=== PATIENT | male | born 1990 | race Caucasian/White ===

== ENCOUNTER 2016-10-12 20:19 | Inpatient (IN) | payer OTHER ==
[~2016-10-12 20:19] MED LIST: DEMEROL 50 MG IJ ONE; VERSED 5 MG/5 ML IV ONE
[2016-10-12] MEDS ORDERED: Adacel Vial IM ONE ×2 (20:52→21:04)
[2016-10-12] MEDS ORDERED: Marcaine 0.5%/Epinephrine 10 ML IJ ONE (20:53)
[2016-10-12 21:02] LABS: BASOPHIL % 0.1 % (0.0-0.4); Eosinophil % 0.2 % (0.00-5.0); Granulocytes % 81.1 % (36.0-66.0); Lymphocytes % 8.9 % (24.0-44.0); Mean Cell Volume 88.9 fl (78-100); Mean Corpuscular Hemoglobin 30.4 pg (26-32); Mean Platelet Volume 9.6 fl (6-9.5); Monocytes % 9.7 % (0.0-12.0); Platelet Count 193 K/mm3 (150-450); Red Blood Count 4.61 M/mm3 (4.1-5.6); Red Cell Distribution Width 12.9 % (11.5-14.0); White Blood Count 12.2 K/mm3 (4.0-10.5)
[2016-10-12] MEDS: Sodium Chloride 0.9% 1000 ML 1,000 ML IV SCH (21:10)
--- NOTE | 2016-10-12 21:22 | ERPHSYRPT ---
- History of Present Illness Source: patient, other (fiance) Exam Limitations: no limitations Patient Subjective Stated Complaint: "I had about a 100 temp a hour ago. I noticed this spot on my right arm ealier and tried to drain it with a sterile razor blade. It was a lot bigger then it is now." Triage Nursing Assessment: aox3, breathing easy unlabored, skin pink warm dry with abscess noted ti right forearm, steady gait Physician History: "Patient with swelling in area of abscess of the right mid dorsal forearm over past 4 days which has been increasing in redness swelling down into the wrist area up into the elbow area and he lanced it himself with razor blade earlier today with purulent drainage. Possible foreign body as he was grinding steel' 4 days ago also. Otherwise he thinks maybe it could be an insect bite. No history of MRSA in the past denies substance abuse. Did take some Motrin prior to ER admission. Occurred: days ago (4) Method of Injury: other (as above) Quality: aching Severity of Pain-Max: moderate Severity of Pain-Current: mild Extremities Pain Location: forearm: right, wrist: right Modifying Factors: Improves With: immobilization, movement Associated Symptoms: chills, fever Allergies/Adverse Reactions: cefixime [From Suprax] Allergy (Verified 10/12/16 20:32) Home Medications: No Reportable Medications [No Reported Medications] 10/12/16 [History] Hx Tetanus, Diphtheria Vaccination/Date Given: Yes (2011) - Review of Systems Constitutional: Fever, Chills, Malaise Eyes: No Symptoms Ears, Nose, & Throat: No Symptoms Respiratory: No Cough, No Dyspnea Cardiac: No Chest Pain, No Edema, No Syncope Abdominal/Gastrointestinal: No Abdominal Pain, No Nausea, No Vomiting, No Diarrhea Genitourinary Symptoms: No Dysuria Musculoskeletal: Other (aas noted) Skin: Cellulitis, Other (abscess) Neurological: No Symptoms Psychological: No Symptoms Endocrine: No Symptoms Hematologic/Lymphatic: No Symptoms Immunological/Allergic: No Symptoms - Past Medical History Pertinent Past Medical History: No - Past Surgical History Past Surgical History: Yes Other Surgical History: right ankle, tonsils, left thumb, right hand - Social History Smoking Status: Former smoker Drug Use: none - Nursing Vital Signs Nursing Vital Signs: Initial Vital Signs Temperature 98.3 F 10/12/16 20:25 Pulse Rate 97 H 10/12/16 20:25 Respiratory Rate 14 10/12/16 20:25 Blood Pressure 155/88 10/12/16 20:25 O2 Sat by Pulse Oximetry 98 10/12/16 20:25 Pain Scale Pain Intensity 2 - Physical Exam General Appearance: mild distress Eyes, Ears, Nose, Throat Exam: normal ENT inspection Neck Exam: normal inspection Cardiovascular/Respiratory Exam: normal breath sounds, regular rate/rhythm, heart sounds normal Abdominal Exam: non-tender, soft Back Exam: normal inspection Shoulder Exam: normal inspection Elbow/Forearm Exam: limited ROM, pain, soft tissue tenderness, swelling ( findings of erythema/ induration) Wrist Exam: soft tissue tenderness (Erythema cocess however this is central 8x5 cm area of severe induration with 2 x 2 centimeter area of ab), swelling Hand Exam: normal inspection Neuro/Tendon Exam: normal sensation, normal motor functions (but tender/painful) , no evidence tendon injury Mental Status Exam: alert, oriented x 3, cooperative Skin Exam: other (as noted above) SpO2 Interpretation: normal SpO2: 100 Oxygen Delivery: Room Air - Radiology Exams Forearm X-ray Interpretation: Interpreted by me, Other (soft tissue swelling with possibility small foreign body) Ordered Tests: Active Orders 24 hr Category Date Time Status Up Ad Keren ROUTINE Activity 10/12/16 23:44 Active Admission/Status Order ROUTINE Care 10/12/16 23:44 Active Code Status Order ROUTINE Care 10/12/16 23:44 Active IV Care Q6H Care 10/12/16 23:44 Active IV Insertion STAT Care 10/12/16 20:45 Completed Miscellaneous Nursing Order ROUTINE Care 10/12/16 23:44 Active Prepare for Sutures STAT Care 10/12/16 20:53 Completed Sutures STAT Care 10/12/16 20:54 Completed Wound Care STAT Care 10/12/16 20:53 Completed Consult Surgery ROUTINE Cons 10/12/16 23:44 Active Regular Diet Diet 10/12/16 Breakfast Active FOREARM Stat Exams 10/12/16 20:45 Taken BLOOD CULTURE Stat Lab 10/12/16 21:18 Received CBC W DIFF AM.LAB Lab 10/13/16 04:00 Ordered CBC W DIFF Stat Lab 10/12/16 20:50 Completed CMP Stat Lab 10/12/16 20:50 Completed CULTURE,WOUND Stat Lab 10/12/16 21:40 Received Lactic Acid Stat Lab 10/12/16 21:14 Completed Urine Triage Profile Stat Lab 10/12/16 21:05 Ordered Transfer Order Routine Transfer 10/12/16 22:43 Completed Medication Summary Generic Name Dose Route Start Last Admin Trade Name Freq PRN Reason Stop Dose Admin Hydrocodone Bitart/Acetaminophen 1 tab 10/13/16 01:40 10/13/16 04:43 [place] 5/325 Mg PO 10/18/16 01:38 1 tab Q4HPRN PRN Administration PAIN Sodium Chloride 1,000 mls @ 100 mls/hr 10/12/16 20:45 10/13/16 02:39 Sodium Chloride 0.9% 1000 Ml IV 11/11/16 20:44 100 mls/hr .Q10H TREASURE Administration Vancomycin HCl 250 mls @ 250 mls/hr 10/12/16 21:30 10/12/16 22:46 Vancomycin 1gm/ Ns 250ml IV 10/12/16 23:29 250 mls/hr Q1H TREASURE Administration Meropenem 1 g/ Sodium Chloride 100 mls @ 200 mls/hr 10/13/16 06:00 IV 11/12/16 05:59 Q8HT TREASURE Ketorolac Tromethamine 30 mg 10/12/16 23:44 Toradol 30 Mg Injection IV 10/17/16 23:43 Q6H PRN PRN PAIN Morphine Sulfate 4 mg 10/13/16 01:18 10/13/16 02:33 Morphine Sulfate 4 Mg Inj IV 10/18/16 01:17 4 mg Q4H PRN PRN Administration PAIN Non-Formulary Medication 1 each 10/12/16 23:44 Pharmacy Dosing Required: Vancomycin IV 10/12/16 23:45 STAT ONE Ondansetron HCl 4 mg 10/12/16 23:44 Zofran 4 Mg/2 Ml Vial IV 11/11/16 23:43 Q6H PRN PRN NAUSEA/VOMITING Discontinued Medications Generic Name Dose Route Start Last Admin Trade Name Freq PRN Reason Stop Dose Admin Hydrocodone Bitart/Acetaminophen 1 tab 10/12/16 23:44 [place] 5/325 Mg PO 10/17/16 23:43 QID PRN PRN PAIN Bupivacaine HCl/Epinephrine Bitart 5 ml 10/12/16 20:53 10/12/16 21:21 [place] 0.5%/Epinephrine 10 Ml IJ 10/12/16 20:54 Not Given STAT ONE Diphtheria/Tetanus/Acell Pertussis 0.5 ml 10/12/16 20:52 10/12/16 21:10 Adacel Vial IM 10/12/16 20:53 0.5 ml .ONCE ONE Administration Diphtheria/Tetanus/Acell Pertussis Confirm 10/12/16 21:04 Adacel Vial Administered 10/12/16 21:05 Dose 0.5 ml IM .STK-MED ONE Meropenem 1 g/ Sodium Chloride 100 mls @ 200 mls/hr 10/12/16 21:33 10/12/16 21:44 IV 10/12/16 22:02 200 mls/hr STAT ONE Administration Sodium Chloride Confirm 10/12/16 21:36 Sodium Chloride 0.9% 100 Ml Ivpb Administered 10/12/16 21:37 Dose 100 mls @ ud IV .STK-MED ONE Lidocaine HCl Confirm 10/12/16 23:32 Xylocaine 1% Vial 30 Ml Pf Administered 10/12/16 23:33 Dose 30 ml IJ .STK-MED ONE Lidocaine HCl Confirm 10/12/16 23:54 Xylocaine 1% Hcl 20 Ml Mdv Administered 10/12/16 23:55 Dose 20 ml .ROUTE .STK-MED ONE Meropenem Confirm 10/12/16 21:36 Merrem 1 Gm Administered 10/12/16 21:37 Dose 1 g IV .STK-MED ONE Lab/Rad Data: Laboratory Result Diagrams 10/12/16 20:50 10/12/16 20:50 Laboratory Results 10/12/16 10/12/16 10/12/16 Range/Units 21:14 20:50 20:50 WBC 12.2 H (4.0-10.5) K/mm3 RBC 4.61 (4.1-5.6) M/mm3 Hgb 14.0 (12.5-18.0) gm/dl Hct 41.0 L (42-50) % MCV 88.9 (78-100) fl MCH 30.4 (26-32) pg MCHC 34.1 (32-36) g/dl RDW 12.9 (11.5-14.0) % Plt Count 193 (150-450) K/mm3 MPV 9.6 H (6-9.5) fl Gran % 81.1 H (36.0-66.0) % Lymphocytes % 8.9 L (24.0-44.0) % Monocytes % 9.7 (0.0-12.0) % Eosinophils % 0.2 (0.00-5.0) % Basophils % 0.1 (0.0-0.4) % Basophils # 0.01 (0-0.4) Sodium 138 (136-145) mEq/L Potassium 3.7 (3.5-5.1) mEq/L Chloride 98 (98-107) mEq/L Carbon Dioxide 28.1 (21-32) mEq/L Anion Gap 15.3 H (5-15) MEQ/L BUN 11 (9-20) mg/dL Creatinine 1.04 (0.55-1.30) mg/dl Estimated GFR > 60 ML/MIN Glucose 130 H (70-110) MG/DL Lactic Acid 1.6 (0.4-2.0) Calcium 9.7 (8.5-10.1) mg/dL Total Bilirubin 0.70 (0.2-1.0) mg/dL AST 19 (15-37) U/L ALT 24 (12-78) U/L Alkaline Phosphatase 75 (46-116) U/L Serum Total Protein 8.1 (6.4-8.2) gm/dL Albumin 4.3 (3.4-5.0) g/dL - Progress Progress: improved Progress Note: 10/12/16 22:37 patient is needed significant incision and drainage of the abscess/induration/cellulitis and expiration for foreign body of the right forearm. Case discussed Dr. Allen and he recommended general surgery consult as he is going out of town. Case was discussed with Dr. Hernandez and he agreed to take the patient to surgery at this time and her monitor local for formal incision and drainage. Case discussed with Dr. Myles will be the attending as patient has no medical provider and patient will be admitted with IV antibiotics this is all in agreement to the patient.antibiotics were chosen with consultation pharmacist reconstructive dentist. 10/12/16 22:53 [address] with DrPradeep: Tiffany Myles Puccia Counseled pt/family regarding: lab results, diagnosis, rad results - Departure Time of Disposition: 22:42 Departure Disposition: In-patient Admission Clinical Impression: abscess with cellulitis diffuse forear, Right forearm cellulitis, possible foreign body right forearm Condition: Serious Critical Care Time: No
[2016-10-12] MEDS ORDERED: Merrem 1 GM 1 G in Sodium Chloride 100ML MINI-BAG PLUS 100 ML IV ONE (21:33)
[2016-10-12] MEDS ORDERED: Merrem 1 GM IV ONE (21:36)
[2016-10-12] MEDS ORDERED: Sodium Chloride 0.9% 100 ML IVPB 100 ML IV ONE (21:36)
[2016-10-12 21:37] LABS: ALBUMIN 4.3 g/dL (3.4-5.0); ALKALINE PHOSPHATASE 75 U/L (46-116); ANION GAP 15.3 MEQ/L (5-15); BLOOD UREA NITROGEN 11 mg/dL (9-20); CHLORIDE 98 mEq/L (98-107); Carbon Dioxide 28.1 mEq/L (21-32); Glucose 130 MG/DL (70-110); Potassium 3.7 mEq/L (3.5-5.1); SGOT/AST 19 U/L (15-37); SGPT/ALT 24 U/L (12-78); SODIUM 138 mEq/L (136-145); Total Protein 8.1 gm/dL (6.4-8.2)
[2016-10-12] MEDS: Vancomycin 1GM/ Ns 250ML*** 250 ML IV SCH (22:46)
[2016-10-12] MEDS ORDERED: Xylocaine 1% Vial 30 ML PF IJ ONE (23:32)
[2016-10-12] MEDS ORDERED: NORCO 5/325 MG PO PRN (23:44)
[2016-10-12] MEDS ORDERED: Zofran 4 MG/2 ML VIAL IV PRN (23:44)
[2016-10-12] MEDS ORDERED: PHARMACY DOSING REQUIRED: VANCOMYCIN IV ONE (23:44)
[2016-10-12] MEDS ORDERED: TORAdol 30 mg Injection IV PRN (23:44)
[2016-10-12] MEDS ORDERED: XYLOCAINE 1% HCL 20 ML MDV ONE (23:54)
[2016-10-13] MEDS: MORPHINE SULFATE 4 MG INJ IV PRN ×4 (02:33→20:24)
[2016-10-13] MEDS: Sodium Chloride 0.9% 1000 ML 1,000 ML IV SCH ×2 (02:39→13:45)
[2016-10-13] MEDS: NORCO 5/325 MG PO PRN ×4 (04:43→23:25)
[2016-10-13] MEDS ORDERED: Merrem 1 GM IV ONE (05:29)
[2016-10-13] MEDS ORDERED: Sodium Chloride 0.9% 100 ML IVPB 100 ML IV ONE (05:29)
[2016-10-13] MEDS: Merrem 1 GM 1 G in Sodium Chloride 100ML MINI-BAG PLUS 100 ML IV SCH ×3 (05:37→22:30)
[2016-10-13 05:45] LABS: BASOPHIL % 0.1 % (0.0-0.4); Eosinophil % 0.6 % (0.00-5.0); Granulocytes % 69.8 % (36.0-66.0); Mean Cell Volume 90.3 fl (78-100); Mean Corpuscular Hemoglobin 30.5 pg (26-32); Mean Platelet Volume 10.1 fl (6-9.5); Monocytes % 10.5 % (0.0-12.0); Platelet Count 166 K/mm3 (150-450); Red Blood Count 4.13 M/mm3 (4.1-5.6); White Blood Count 7.7 K/mm3 (4.0-10.5)
[2016-10-13] MEDS ORDERED: TROUGH DRUG LEVELS IJ ONE (08:00)
--- NOTE | 2016-10-13 08:32 | PCM.HP ---
History of Present Illness - Chief Complaint Chief Complaint: DIFFUSE CELLULITIS WITH ABSCESS POSSIBLE FOREIGN BODY History of Present Illness: is a 26 year old male who developed a red and sore area on the right forearm 4 days ago, he has developed worsening swelling and pain since then. attempted to drain it himself at home, developed red streaking to the biceps and chills so came in to the ER, went to surgery last night for incision and drainage with Dr Hernandez. - Review of Systems Constitutional: No Fever, No Chills Respiratory: No Cough, No Short Of Breath Cardiac: No Chest Pain, No Edema, No Syncope Skin: Cellulitis, Other (right forearm abscess, redness) Medications & Allergies Home Medications: Home Medication List No Reportable Medications [No Reported Medications] 10/12/16 [History Confirmed 10/12/16] Allergies/Adverse Reactions: Allergies Allergy/AdvReac Type Severity Reaction Status Date / Time cefixime [From Suprax] Allergy Verified 10/12/16 20:32 - Past Medical History Past Medical History: No Neurological History: No Pertinent History ENT History: No Pertinent History Cardiac History: No Pertinent History Respiratory History: No Pertinent History Endocrine Medical History: No Pertinent History Musculoskelatal History: Other GI Medical History: No Pertinent History History: No Pertinent History Pyscho-Social History: No Pertinent History Male Reproductive Disorders: No Pertinent History Comment: PT STATES HAS SCIATIC PAIN FROM OLD INJURY. SLIPPED DISKS IN LOWER BACK - Past Surgical History Past Surgical History: Yes Neuro Surgical History: No Pertinent History Cardiac History: No Pertinent History GI Surgical History: No Pertinent History Genitourinary Surgical Hx: No Pertinent History Musculskeletal Surgical Hx: No Pertinent History Male Surgical History: No Pertinent History Other Surgical History: right ankle, tonsils, left thumb, right hand - Social History Smoking Status: Former smoker How long have you smoked: AGE 20 Exposure to second hand smoke: No Alcohol: Weekly Drug Use: none - Physical Exam Vital Signs: Vital Signs - 24 hr Temp Pulse Resp BP BP Pulse Ox 10/13/16 08:00 97.9 F 95 H 17 145/88 97 10/13/16 05:02 100 10/13/16 04:00 98.5 F 85 18 129/83 94 L 10/13/16 02:00 98.3 F 79 17 129/70 95 10/13/16 01:30 98.6 F 80 18 139/79 95 10/13/16 01:00 98.4 F 85 19 139/83 97 10/13/16 00:45 98.7 F 82 18 153/87 98 10/13/16 00:30 98.4 F 84 18 138/76 97 10/13/16 00:23 98.8 F 82 17 131/77 97 10/13/16 00:15 98.5 F 103 H 17 152/85 98 General Appearance: no apparent distress, alert Respiratory Exam: normal breath sounds, lungs clear, No respiratory distress Cardiovascular Exam: regular rate/rhythm, normal heart sounds, normal peripheral pulses Gastrointestinal/Abdomen Exam: soft, normal bowel sounds, No tenderness, No mass Extremity Exam: other (right forearm with open area, packing in place. surrounding induration and erythema) Results - Labs Lab/Micro Results: Lab Results-Last 24 Hours 10/13/16 Range/Units 05:30 WBC 7.7 (4.0-10.5) K/mm3 RBC 4.13 (4.1-5.6) M/mm3 Hgb 12.6 (12.5-18.0) gm/dl Hct 37.3 L (42-50) % MCV 90.3 (78-100) fl MCH 30.5 (26-32) pg MCHC 33.8 (32-36) g/dl RDW 13.0 (11.5-14.0) % Plt Count 166 (150-450) K/mm3 MPV 10.1 H (6-9.5) fl Gran % 69.8 H (36.0-66.0) % Lymphocytes % 19.0 L (24.0-44.0) % Monocytes % 10.5 (0.0-12.0) % Eosinophils % 0.6 (0.00-5.0) % Basophils % 0.1 (0.0-0.4) % Basophils # 0.01 (0-0.4) Assessment/Plan (1) Abscess of right forearm Current Visit: Yes Status: Acute Assessment & Plan: continue vanc and meropenem Code(s): L02.413 - CUTANEOUS ABSCESS OF RIGHT UPPER LIMB
--- NOTE | 2016-10-13 08:39 | XRAY ---
Indication: Knot/swelling mid forearm. Drainage. Possible foreign body. Comparison: None 2 views of the right forearm demonstrates mid radial posterior soft tissue swelling with underlying punctate soft tissue foreign body posteriorly. No other bony, articular, or soft tissue abnormalities.
[2016-10-13] MEDS: VANCOCIN 1 GM VIAL*** 1 GM in Sodium Chloride 0.9% 250 ML 250 ML IV SCH ×2 (13:45→23:26)
--- NOTE | 2016-10-13 15:27 | OP ---
SURGERY DATE/TIME 10/12/2016 9773 PREOPERATIVE DIAGNOSIS: Right arm abscess. POSTOPERATIVE DIAGNOSIS: Right arm abscess. PROCEDURE: Incision and drainage. SURGEON: Jaycob Hernandez M.D. ANESTHESIA: Local with sedation. ESTIMATED BLOOD LOSS: Minimal. COMPLICATIONS: None. INDICATIONS: This 26 year-old man came to the emergency room complaining of right arm pain and swelling. He was found to have an abscess which was then referred to [place] for surgical management. He was taken to surgery for incision and drainage which was done without complication. DESCRIPTION OF PROCEDURE AND FINDINGS: The patient was taken to the operating room, placed on the operating table in supine position. The right arm was prepped and draped in the usual sterile fashion. 1% Lidocaine was used for local anesthesia. He was given 2 mg of Versed and 50 mg of Demerol IV. A skin incision was made and purulent material was evacuated. Cultures were obtained. The wound was then irrigated and packed with Iodoform packing. Dressing was applied. The patient tolerated this procedure well.
--- NOTE | 2016-10-13 15:32 | HP ---
CHIEF COMPLAINT: Right arm abscess. HISTORY OF PRESENT ILLNESS: The patient is a 26 year-old who came to the emergency room complaining of right arm swelling and pain for several days. He denies any insect bites or drug use. PHYSICAL EXAMINATION: Revealed a pleasant gentleman in no acute distress. HEENT: Pupils equal and normal reactive. NECK: Supple. COR: Regular rhythm. EXTREMITIES: The right upper extremity had some swelling and pain consistent with cellulitis and abscess. IMPRESSION: Likely methicillin resistant staphylococcus aureus-type of infection in the right upper extremity. PLAN: Proceed with incision and drainage in the OR.
[2016-10-14] MEDS: Sodium Chloride 0.9% 1000 ML 1,000 ML IV SCH ×3 (01:41→14:20)
[2016-10-14] MEDS: Merrem 1 GM 1 G in Sodium Chloride 100ML MINI-BAG PLUS 100 ML IV SCH ×3 (05:23→22:21)
[2016-10-14] MEDS ORDERED: TROUGH DRUG LEVELS IJ ONE ×2 (05:30)
[2016-10-14] MEDS: VANCOCIN 1 GM VIAL*** 1 GM in Sodium Chloride 0.9% 250 ML 250 ML IV SCH ×3 (06:10→22:57)
[2016-10-14] MEDS: NORCO 5/325 MG PO PRN ×4 (07:15→20:33)
--- NOTE | 2016-10-14 08:39 | PCM.NOTE ---
Date and Time: 10/14/16 0836 Subjective Assessment: doing better today, pain and swelling improving. no new complaints. Objective Exam General Appearance: no apparent distress, alert Respiratory Exam: normal breath sounds, lungs clear, No respiratory distress Cardiovascular Exam: regular rate/rhythm, normal heart sounds Gastrointestinal/Abdomen Exam: soft, No tenderness, No mass Extremity Exam: other (right forearm open area with purulent discharge on packing, surrounding induration and surrounding erythema dramatically better) OBJECTIVE DATA Vital Signs: Vital Signs - 24 hr Temp Pulse Resp BP BP Pulse Ox 10/14/16 04:00 97.8 F 72 16 122/68 98 10/14/16 00:00 98.1 F 68 17 130/87 100 10/13/16 20:31 98.3 F 71 17 132/78 98 10/13/16 17:41 98.1 F 79 18 129/82 95 10/13/16 16:00 97.9 F 95 H 18 145/88 100 10/13/16 11:39 97.9 F 55 L 18 138/77 100 Pain Assessment - Last Documented Pain Intensity 5 Pain Scale Used 0-10 Pain Scale Intake and Output: Intake & Output 10/11/16 10/12/16 10/13/16 10/14/16 11:59 11:59 11:59 11:59 Intake Total 1745 5059 Output Total 950 Balance 1745 4109 Weight 78.335 kg Lab Results: Lab Results-Last 24 Hours 10/14/16 Range/Units 05:50 Vancomycin Trough 11.3 (10-20) UG/ML Assessment/Plan (1) Abscess of right forearm Current Visit: Yes Status: Acute Assessment & Plan: continue vanc and meropenem, awaiting wound culture. likely home tomorrow on po med based on wound culture final result Code(s): L02.413 - CUTANEOUS ABSCESS OF RIGHT UPPER LIMB
[2016-10-14] MEDS: MORPHINE SULFATE 4 MG INJ IV PRN ×3 (13:46→22:22)
[2016-10-15] MEDS: NORCO 5/325 MG PO PRN ×3 (00:42→09:50)
[2016-10-15] MEDS: Sodium Chloride 0.9% 1000 ML 1,000 ML IV SCH (01:32)
[2016-10-15] MEDS: Merrem 1 GM 1 G in Sodium Chloride 100ML MINI-BAG PLUS 100 ML IV SCH (05:06)
[2016-10-15] MEDS: VANCOCIN 1 GM VIAL*** 1 GM in Sodium Chloride 0.9% 250 ML 250 ML IV SCH (05:42)
[2016-10-15 06:07] LABS: BASOPHIL % 0.4 % (0.0-0.4); Eosinophil % 3.3 % (0.00-5.0); Granulocytes % 46.2 % (36.0-66.0); Lymphocytes % 38.6 % (24.0-44.0); Mean Cell Volume 91.4 fl (78-100); Mean Corpuscular Hemoglobin 30.1 pg (26-32); Mean Platelet Volume 10.8 fl (6-9.5); Monocytes % 11.5 % (0.0-12.0); Platelet Count 188 K/mm3 (150-450); Red Blood Count 4.08 M/mm3 (4.1-5.6); Red Cell Distribution Width 12.9 % (11.5-14.0); White Blood Count 4.5 K/mm3 (4.0-10.5)
[2016-10-15] MEDS: MORPHINE SULFATE 4 MG INJ IV PRN (06:27)
[2016-10-15 06:41] LABS: BLOOD UREA NITROGEN 10 mg/dL (9-20); CHLORIDE 105 mEq/L (98-107); Carbon Dioxide 29.9 mEq/L (21-32); Glucose 92 MG/DL (70-110); Potassium 3.9 mEq/L (3.5-5.1); SODIUM 141 mEq/L (136-145)
[2016-10-15 07:25] VITALS: BP 112/60; PULSE 59; O2SAT 59
--- NOTE | 2016-10-15 09:38 | PCM.DCORD ---
- Discharge Discharge Date: 10/15/16 Condition: Good Prescriptions: New Sulfamethoxazole/Trimethoprim [Bactrim Ds Tablet] 1 each PO BID #14 tablet Instructions: Cellulitis -- Adult Additional Instructions: Dressing change daily to right forearm. use iodoform packing and gauze dressing. Follow up with: THAI PALAFOX [ACTIVE STAFF] - Call for Appointment HENRY RIVERA MD [ACTIVE STAFF] - 1 Week
--- NOTE | 2016-10-17 13:29 | DS ---
DISCHARGE DIAGNOSIS: ABSCESS TO RIGHT FOREARM. CONSULTANTS: Dr. Curiel [facility] COURSE: The patient is a 26 year-old white male patient who presented to the emergency room due to complaints of right arm swelling, warmth and tenderness. He thought that he might have shavings of metal in his forearm. He was admitted to the hospital and begun on IV Vancomycin. Surgical consultation obtained from Dr. Curiel who did incision and drainage over the area. The patient did improve particularly after I&D was performed. There was some minimal swelling in the posterior areas of the right hand. Redness was essentially gone. The area is being packed open presently with Iodoform gauze. An area of approximately 1 x 0.5 inch in area over the forearm has been incised and packed with Iodoform gauze. The patient's metabolic panel was entirely normal. His white blood cell count was noted to be 4,500 on 10/15/2016. Hemoglobin 12.3 and PLT count 188,000. Blood cultures have been no growth to date. He was felt to be ready for discharge home. It was incidentally noted however the patient did have urine drug screen positive for amphetamine, benzodiazepines and opiates. This patient was discharged home on Bactrim DS twice a day. He was instructed to change the Iodoform gauze every day and keep covered otherwise. He has asked to follow up with his doctor, Dr. Bao Myles, in the office in the next coming week or return to the hospital if any worsening in his condition in the interim.
== END 2016-10-15 10:20 | disposition home or self-care (01) | DRG 603 ==
LOC: ED 20:19 → MED SURG 23:19
PROVIDERS: ADMIT Family Medicine; ATTEND Family Medicine
PROC: 0H9DXZX Drainage of Right Lower Arm Skin, External Approach, Diagnostic (ICD-10-PCS; principal; 2016-10-12)
DX: L02.413 Cutaneous abscess of right upper limb (principal); L03.113 Cellulitis of right upper limb
CPT/HCPCS: 36000; 36415; 73090; 80048; 80053; 80202; 80307; 83605; 85025; 87040; 87070; 90471; 90715; 96360; 96361; 96365; 96366; 99285; J1885; J2001; J2175; J2250; J2270; J3370; A9270-GY